=== PATIENT | female | born 1945 | race Caucasian/White ===

== ENCOUNTER → 2017-03-05 | Outpatient (CLI) | payer OTHER ==
--- NOTE | 2017-03-05 15:45 | MAMMOGRAPHY REPORT ---
BILATERAL DIGITAL SCREENING MAMMOGRAM TOMOSYNTHESIS WITH CAD: 03/05/2017 CLINICAL HISTORY: Routine screening. TECHNIQUE: Breast tomosynthesis in addition to standard 2D mammography was performed. Current study was also evaluated with a Computer Aided Detection (CAD) system. COMPARISON: Comparison is made to exams dated: 03/01/2016 mammogram, 02/18/2015 mammogram, 02/17/2014 m ammogram, 01/21/2013 mammogram, 01/21/2012 mammogram, and 12/18/2010 mammogram - [facility]. BREAST COMPOSITION: There are scattered areas of fibroglandular density in both breasts. FINDINGS: There is a stable intramammary lymph node in the right upper outer quadrant. No suspiciou s mass, architectural distortion or cluster of microcalcifications is seen. IMPRESSION: ACR BI-RADS CATEGORY 1: NEGATIVE There is no mammographic evidence of malignancy. A 1 year screening mammogram is recommended. The pa tient will receive written notification of the results. Approximately 10% of breast cancers are not detected with mammography. A negative mammographic report should not delay biopsy if a clinically suggestive mass is present. Libra Hernadez M.D. ay/:03/05/2017 15:25:52 Penology Professor: Jacque LÓPEZ(R)(M), [facility] letter sent: Normal 1/2 BI-RADS Code: ACR BI-RADS Category 1: Negative
== END | disposition home or self-care (01) ==
LOC: C.MAMM 10:22
PROVIDERS: ATTEND Internal Medicine
DX: Z12.31 Encounter for screening mammogram for malignant neoplasm of breast (principal)

== ENCOUNTER 2018-07-09 10:16 | Inpatient (IN) ==
--- NOTE | 2018-06-11 08:56 | Anesthesiology Consultation ---
Date of Service June 11, 2018 Assessment & Plan (1) Encounter for pre-operative examination: Chart Review Chart Review: Acceptable Risk for Surgery and Patient seen in Pre Admission Testing Consults Requested none Teaching & Discussion Pre-Anesthesia Teaching/Discussion Notes: Instructed NPO after midnight before surgery, except medications with 15 cc of water. Medication instructions provided according to the PAT guidelines. History Surgery Operation Date: 07/08/18 08:50 Proposed Procedures p Right Total Knee Replacement - Hernando Dejesus MD Height/Weight Height: 5 ft 2 in Weight: 95.5 kg Allergies Allergy/AdvReac Type Severity Reaction Status Date / Time pneumococcal vaccine AdvReac Intermediate Muscle Verified 06/11/18 08:54 [From Prevnar 13 (PF)] wasting [place] Inhibitors AdvReac Unknown Cough Verified 06/04/18 08:53 Medications Home Medications Medication Instructions Recorded Confirmed Last Taken aspirin [Aspir-81] 81 mg PO DAILY 06/04/18 06/04/18 Unknown losartan 25 mg PO QPM 06/04/18 06/04/18 06/03/18 magnesium citrate 200 - 400 mg PO HS 06/04/18 06/11/18 Unknown melatonin 1 cap PO HS 06/04/18 06/04/18 Unknown milk thistle 175 mg PO QPM 06/04/18 06/04/18 Unknown Past Medical History Medical History Arthritis Asymptomatic gallstones Fatty liver History of anesthesia reaction SLOW TO WAKE UP Hypertension Post-nasal drip "BAD", FEAR OF LYING DOWN DUE TO THIS Shortness of breath WHEN CLIMBING OVER 13 STEPS Past Family History Family History Sister Family history of multiple myeloma Aunt Family history of breast cancer Past Surgical History Surgical History History of arthroscopy of right shoulder History of colonoscopy Past Anesthesia History No Hx of Anesthesia Complications ("slow to wake" from colonoscopy) and No Family Hx of Anesthesia Complications History of PONV No Motion Sickness Screening History of Motion Sickness: Yes Social History Smoking Status: Never smoker Do You Dip or Chew Tobacco: No Hx Alcohol Use: No Hx Substance Use: No substance use type: does not use Exercise / Class Metabolic Activity II 4-5 Yardwork/Stairs/Walk up hill (Walks puppy several times per day. Cares for her house. Able to climb FOS. Denies CP or SOB. Does get SOB when doing multiple FOS. ) Review of Systems Patient denies chest pain, shortness of breath, dyspnea on exertion, reflux, cough, wheezing, palpitations. +[place] with multiple FOS +joint pain (knees, left hip, low back) Physical Exam Vital Signs BP: 140/82 P: 64 R: 16 T: 98.3 SPO2: 98% on RA Constitutional + obese ENMT Mouth: + dental restorations Thyromental Distance: < 3.5 Finger Breadths (3) Mallampati Class: II Neck normal visual inspection and trachea midline; neck extension not limited Respiratory normal respiratory effort Auscultation: lungs clear to auscultation bilaterally Cardiovascular Rate/Rhythm: regular rate and regular rhythm Heart Sounds: no murmur Vessels: no carotid bruit Neurologic moves all extremities Psychiatric Orientation: alert and oriented x 3 Testing Electrocardiogram Date: 06/11/18 Findings: + NSR @ (66) and + no change from (04/29/07) Chest X-Ray Date: 06/11/18 Findings: + NAD Stress Test Date: 05/08/17 Type: DSE Findings: + WNL Resting EF: 55-59% Resting RWMA: + none Valvular Disease: no significant valvular disease Stress ECHO is negative for inducible ischemia. There is no significant valvular disease on the resting study. The proximal ascending thoracic aorta is mildly enlarged. Stress EKG responsed showed no evidence of ischemia. Occasional PVCs were noted with stress. ST segments were normal at rest. Stress test was terminated due to target HR achieved. No symptoms noted. LV wall thickness is mildly increased (concentric). Left ventricular diastolic function is mildly abnormal (grade I). Laboratory Results 06/11/18 09:24 06/11/18: Blood Type O Negative 06/11/18 Antibody Screen NEGATIVE 06/11/18 PT 10.4 Seconds (9.0-12.0) 06/11/18 INR 1.0 (0.9-1.1) 06/11/18 APTT 27.5 Seconds (21.0-31.0) 06/11/18
--- NOTE | 2018-06-11 09:09 | PAT Medication Instructions ---
Medication Instructions Date of Service June 11, 2018 Home Medications aspirin [Aspir-81] 81 mg PO DAILY losartan 25 mg PO QPM magnesium citrate 200 - 400 mg PO HS melatonin 1 cap PO HS milk thistle 175 mg PO QPM ASK your surgeon for instructions aspirin [Aspir-81] 81 mg PO DAILY STOP taking 2 weeks before surgery magnesium citrate 200 - 400 mg PO HS milk thistle 175 mg PO QPM Take morning of surgery NOTHING TO EAT OR DRINK AFTER MIDNIGHT: Take evening before surgery losartan 25 mg PO QPM melatonin 1 cap PO HS Other Notes If you have any questions please call us at [phone] or [phone] or [phone] or [phone]
--- NOTE | 2018-06-11 09:47 | XRay Report ---
XR chest Pre-admission PA/Lat CLINICAL HISTORY: pat preoperative evaluation COMPARISON STUDY: No previous studies for comparison. FINDINGS: The bones soft tissues and hemidiaphragms are normal. The cardiomediastinal silhouette is n ormal. The lungs are clear. The pulmonary vasculature is normal. IMPRESSION: Negative chest. The above report was generated using voice recognition software. It may contain grammatical, syntax or spelling errors. Electronically signed by: Panchito Braxton M.D. 06/11/2018 9:45 AM
[2018-06-11 10:29] LABS: Basophils # (auto) 0.02 K/uL (0-0.2); Basophils % (auto) 0.3 %; Eosinophils # (auto) 0.29 K/uL (0-0.5); Eosinophils % (auto) 3.6 %; Hematocrit (blood only) 45.2 % (37-47); Hemoglobin 15.2 g/dL (12.0-16.0); Immature Granulocytes # (auto) 0.04 K/uL (0.00-0.02); Immature Granulocytes % (auto) 0.5 %; Lymphocytes % (auto) 25.2 %; Mean Corpuscular Hgb Conc 33.6 g/dL (32-36); Mean Corpuscular Volume 89.3 fL (80-100); Mean Platelet Volume 10.1 fL (7.4-10.4); Monocytes # (auto) 0.53 K/uL (0.11-0.59); Monocytes % (auto) 6.7 %; Neutrophils # (auto) 5.07 K/uL (1.4-6.5); Neutrophils % (auto) 63.7 %; Platelet Count 246 K/uL (130-400); RDW Coefficient of Variation 13.4 % (11.5-14.5); RDW Standard Deviation 43.3 fL (36.4-46.3); Red Blood Count 5.06 M/uL (4.2-5.4); White Blood Count 7.95 K/uL (4.8-10.8)
[2018-06-11 10:36] LABS: BUN Creatinine Ratio 17.5 (10-20); Calcium 9.2 mg/dl (8.5-10.1); Creatinine Clr Calc Pharmacy 62.5 ml/min; Est GFR (African American) 75.6; Est GFR (Non-African American) 65.2; Potassium 4.4 mmol/L (3.5-5.1)
[2018-06-11 10:41] LABS: Partial Thromboplastin Ratio 1.1; Partial Thromboplastin Time 27.5 Seconds (21.0-31.0); Prothrombin Time 10.4 Seconds (9.0-12.0)
--- NOTE | 2018-07-03 07:57 | History and Physical Report ---
DATE OF ADMISSION: 07/08/2018 CHIEF COMPLAINT: Bilateral knee pain and degenerative joint disease. HISTORY OF PRESENT ILLNESS: A 72-year-old white female who returned for a followup of treatment of her knees. She has got a long history of bilateral knee pain and discomfort that has become less successful over time. She has been through injection treatment as well as various medicines, which have become less successful. Both knees hurt about the same. The last shot helped for a month. The more she walks, the more it hurts. She has a limited walking tolerance of a couple of blocks. She has difficulty going up and down steps and has nighttime pain. She now would like to proceed with surgical treatment of one of her knees and has selected the right one to do first. PAST MEDICAL HISTORY: 1. Hypertension. 2. Obesity with a BMI of 39. 3. Arthritis. PAST SURGICAL HISTORY: Previous surgeries include rotator cuff surgery. ALLERGIES: None. CURRENT MEDICINES: 1. Losartan. 2. Aspirin 81 mg. 3. Milk thistle. 4. Magnesium. SOCIAL HISTORY: A 72-year-old white female. She has 2 children. Does not smoke or drink alcohol. FAMILY HISTORY: Noncontributory. REVIEW OF SYSTEMS: Negative for diabetes, neurologic problem, vascular problem, bleeding disorders. No chest pain or shortness of breath. No recent DVT or PE. PHYSICAL EXAMINATION: GENERAL: Reveals a healthy, pleasant middle-aged female. Looks to be in pretty good health. HEENT: Benign. NECK: Supple. No lymphadenopathy. LUNGS: Clear to auscultation. HEART: Regular rate and rhythm. ABDOMEN: Soft, nontender, nondistended. EXTREMITIES: Grossly neurovascularly intact except as follows: Examination of both knees revealed patient walks independently. She has got fairly neutral alignment to her knees. She does have moderate to large soft tissue envelope bilaterally. She is tender over the medial joint lines bilaterally. Range of motion is symmetric with about 5 degrees short of full extension and 120 degrees of flexion bilaterally. No pain with hip motion. She is neurologically intact. X-RAYS: X-rays of both knees reveal advanced bilateral knee DJD, the right side is a bit worse than the left. She has complete loss of medial joint space in both knees. She has subchondral sclerosis and osteophytes in all 3 compartments. The patellofemoral arthritis is worse than the left side. ASSESSMENT: A 72-year-old white female with advanced bilateral knee degenerative joint disease. She now would like to proceed with surgical treatment. She has failed conservative care. PLAN: We talked about treatment. She would like to proceed with right knee replacement. The risks and benefits of the right total knee replacement were explained to the patient include but not limited to DVT, PE, , infection, neurological injury, vascular injury, bleeding problem, pain, limited range of motion, stiffness, failure to relieve symptoms, incomplete relief of symptoms, need for further surgery in future, fracture, leg length inequality, nerve palsy, etc. The patient understands and desires to proceed. Informed consent was obtained. She does have some problems with a fatty liver, so we cannot give her Tylenol postoperatively. Will likely have to use NSAIDs and then strictly narcotics.
[~2018-07-09 10:16] MED LIST: ACETAMINOPHEN 500 MG TAB PO SCH; BUPIVACAINE 0.5 % 5 MG/1 ML PF 10ML VIAL ONE; BUPIVACAINE LIPOSOME/PF 266 MG, BUPIVACAINE/EPINEPHRINE 50 ML, SODIUM CHLORIDE 0.9% 30 ... INFIL SCH; CEFAZOLIN 2000MG 2,000 MG/15 ML SYR IV SCH; EPINEPHrine INJ 1 MG/ML AMP ONE; FAMOTIDINE 20 MG TAB PO SCH; GABAPENTIN 300 MG PO SCH; LR 60ML/HR IV SCH; METOCLOPRAMIDE HCL 10 MG TABLET PO SCH; ROPIVACAINE 0.5% 5 MG/ML 30 ML VIAL ONE; TRANEXAMIC ACID 1,000 MG **IV Intra-op IV SCH
[2018-07-09] MEDS: LR 500ML BOLUS, THEN 15ML/HR IV SCH ×8 (10:59→23:10)
[2018-07-09] MEDS ORDERED: FAMOTIDINE 20 MG TAB ONE (11:01)
[2018-07-09] MEDS ORDERED: GABAPENTIN 300 MG CAP ONE (11:01)
[2018-07-09] MEDS ORDERED: METOCLOPRAMIDE HCL 10 MG TABLET ONE (11:01)
[2018-07-09] MEDS ORDERED: ACETAMINOPHEN 500 MG TAB ONE (11:01)
[2018-07-09] MEDS ORDERED: CEFAZOLIN 2,000 MG/15 ML IV PUSH IV ONE (11:02)
--- NOTE | 2018-07-09 11:26 | History & Physical Bridge Note ---
Date of Service July 09, 2018 History & Physical Bridge Note I have examined the patient, reviewed the History & Physical and in the interval since the performance of the History & Physical I have noted the following changes of clinical significance: no changes noted
[2018-07-09] MEDS ORDERED: TRANEXAMIC ACID 1,000 MG **IV Intra-op IV ONE (11:30)
[2018-07-09] MEDS ORDERED: MIDAZOLAM HCL 1 MG/ML 2ML VIAL ONE ×2 (12:35→14:46)
[2018-07-09] MEDS ORDERED: ePHEDrine sulfate 50 MG/ML AMP IV PRN (12:36)
[2018-07-09] MEDS ORDERED: LABETALOL HCL IV 5 MG/ML 20ML IV PRN (12:36)
[2018-07-09] MEDS ORDERED: MEPERIDINE HCL 25 MG/ML CARP IV PRN (12:36)
[2018-07-09] MEDS ORDERED: ATROPINE SULFATE 0.1 MG/ML 10ML SYR IV PRN (12:36)
[2018-07-09] MEDS ORDERED: HYDROmorphone INJ 1 MG/ML SYRINGE IV PRN (12:36)
[2018-07-09] MEDS ORDERED: ONDANSETRON INJ 2 MG/ML 2 ML VIAL IV PRN ×2 (12:36→16:27)
[2018-07-09] MEDS ORDERED: fentaNYL citrate 100 MCG/2 ML VIAL IV PRN (12:36)
[2018-07-09] MEDS ORDERED: PHENYLEPHRINE 100MCG/ML 5ML SYR IV PRN (12:36)
[2018-07-09] MEDS ORDERED: PROPOFOL IV EMULSION 10 MG/ML 20 ML VIAL IV ONE (13:14)
[2018-07-09] MEDS ORDERED: LIDOCAINE HCL 2% 2 ML VIAL/AMP(20MG/ML) INFIL ONE (13:14)
[2018-07-09] MEDS ORDERED: ONDANSETRON INJ 2 MG/ML 2 ML VIAL ONE (13:14)
[2018-07-09] MEDS ORDERED: DEXAMETHASONE SOD INJ 4 MG/ML VIAL ONE (13:14)
[2018-07-09] MEDS ORDERED: SODIUM CHLORIDE 0.9% PF 50 ML VIAL ONE (13:22)
[2018-07-09] MEDS ORDERED: BACITRACIN INJ 50,000 UNIT VIAL ONE (13:22)
[2018-07-09] MEDS ORDERED: BUPIVACAINE 0.25% 30 ML VIAL ONE (13:23)
[2018-07-09] MEDS ORDERED: BUPIVACAINE LIPOSOME 1.3% 266 MG/20 ML VIAL ONE (13:23)
[2018-07-09] MEDS ORDERED: EPINEPHrine INJ 1 MG/ML AMP ONE (13:24)
[2018-07-09] MEDS ORDERED: fentaNYL citrate 100 MCG/2 ML VIAL ONE (13:56)
--- NOTE | 2018-07-09 15:27 | Post Operative Brief Note ---
Immediate Post Op Note v1 Date of Surgery July 09, 2018 Pre & Post Diagnosis Operation Date: 07/09/18 13:15 Pre-Op Diagnosis: Right Knee Degenerative Joint Disease; Knee Pain Post-Op Diagnosis: Right Knee Degenerative Joint Disease; Knee Pain Procedure Operation Date: 07/09/18 13:15 Actual Procedures p Right Total Knee Replacement(Right) - Hernando Dejesus MD Surgeon Hernando Dejesus MD Screen Machine Operator [place], PAC Estimated Blood Loss 50 Findings Consistent with Post-Op Diagnosis Fluids 450 cc Specimens Right Knee Drains Kirby Catheter Anesthesia Type Spinal MAC Complications none Disposition Accompanied Patient To Recovery: No Disposition: Recovery Room
[2018-07-09] MEDS ORDERED: ePHEDrine sulfate 50 MG/ML SYR ONE (15:37)
--- NOTE | 2018-07-09 15:50 | XRay Report ---
XR knee RT 2V routine CLINICAL HISTORY: Surgical Post Op COMPARISON: None. DISCUSSION: Total right knee arthroplasty with a metallic prosthetic in good position. Good contact b etween prosthesis and underlying bone. Expected soft tissue postoperative change. There is no evidenc e for soft tissue swelling. IMPRESSION: Anatomic alignment post total right knee arthroplasty. The above report was generated using voice recognition software. It may contain grammatical, syntax or spelling errors. Electronically signed by: Panchito Braxton M.D. 07/09/2018 3:49 PM
[2018-07-09] MEDS ORDERED: NALOXONE HCL 0.4 MG/1 ML VIAL/CARP IV PRN (16:27)
[2018-07-09] MEDS ORDERED: BISACODYL 10 MG SUPP PR PRN (16:27)
[2018-07-09] MEDS ORDERED: HYDROmorphone INJ 0.5 MG/0.5 ML SYR IV PRN (16:27)
[2018-07-09] MEDS ORDERED: ALUMINUM/MAGNESIUM SUSP 30 ML UDC PO PRN (16:27)
[2018-07-09] MEDS ORDERED: METOCLOPRAMIDE HCL INJ 5 MG/ML 2 ML VIAL IV PRN (16:27)
[2018-07-09] MEDS ORDERED: MAGNESIUM HYDROXIDE SUSP 30 ML UDC PO PRN (16:27)
--- NOTE | 2018-07-09 17:05 | Anesthesiology Progress Note ---
Date of Service July 09, 2018 Anesthesia Post Procedure Vital Signs Vital Signs: Temp Pulse Pulse Resp BP Pulse Ox 07/09/18 16:48 36.4 C L 69 16 155/84 H 98 07/09/18 16:28 36.4 C L 73 16 150/81 H 98 07/09/18 16:00 36.5 C 66 18 138/74 95 07/09/18 15:50 61 18 134/76 95 07/09/18 15:40 67 18 132/75 95 07/09/18 15:32 36.7 C 71 18 138/71 95 07/09/18 10:55 37 C 78 20 170/91 H 98 Notes Mental Status: alert / awake / arousable Patient Amnestic to Procedure: Yes Nausea / Vomiting: adequately controlled Pain: adequately controlled Airway Patency, RR, SpO2: stable & adequate BP & HR: stable & adequate Hydration State: stable & adequate Neuraxial Anesthesia: was administered and sensory block is resolving Anesthetic Complications: no major complications apparent
[2018-07-09] MEDS: SODIUM CHLORIDE 0.9% 1000ML 1,000 ML IV SCH (18:18)
[2018-07-09] MEDS: ASCORBIC ACID 500 MG TAB PO SCH (18:18)
[2018-07-09] MEDS: FERROUS GLUCONATE 324 MG TAB PO SCH (18:18)
[2018-07-09] MEDS: KETOROLAC TROMETHAMINE 15 MG/ML VIAL IV SCH ×2 (18:19→23:53)
[2018-07-09] MEDS: CEFAZOLIN 2000MG 2,000 MG/15 ML SYR IV SCH (18:38)
[2018-07-09] MEDS: DOCUSATE SODIUM 100 MG CAP PO SCH (20:09)
[2018-07-09] MEDS: LOSARTAN POTASSIUM 25 MG TAB PO SCH (20:09)
[2018-07-09] MEDS: SENNA 8.6 MG TAB PO SCH (20:10)
[2018-07-09] MEDS: ASPIRIN 81 MG ECTAB PO SCH (20:10)
[2018-07-09] MEDS ORDERED: MELATONIN PO SCH (21:00)
[2018-07-09] MEDS ORDERED: MAGNESIUM CITRATE PO SCH (21:00)
[2018-07-09] MEDS ORDERED: MILK THISTLE 175 MG PO SCH (21:00)
[2018-07-09] MEDS ORDERED: TRANEXAMIC ACID 1,000 MG in 0.9 % SODIUM CHLORIDE 100 ML IV SCH (21:30)
[2018-07-10] MEDS: TRAMADOL HCL 50 MG TABLET PO PRN ×2 (02:20→20:21)
[2018-07-10] MEDS: CEFAZOLIN 2000MG 2,000 MG/15 ML SYR IV SCH (02:20)
--- NOTE | 2018-07-10 03:56 | Operative Report ---
DATE OF OPERATION: 07/09/2018 SURGEON: Hernando Dejesus MD COMPLIANCE ANALYST: MAYRA Hillman PREOPERATIVE DIAGNOSIS: Right knee degenerative joint disease. POSTOPERATIVE DIAGNOSIS: Same. PROCEDURE PERFORMED: Right cemented posterior stabilized total knee arthroplasty. COMPLICATIONS: None. ESTIMATED BLOOD LOSS: 50 mL. FLUID REPLACEMENT: 450 mL of crystalloid fluid replacement. ANESTHESIA: Spinal with adductor canal block. DRAINS: None. SPECIMENS: Right knee sent for pathology. OPERATIVE INDICATIONS: The patient is a 72-year-old female who had had a several-year history of increasing bilateral knee pain and discomfort and which became less responsive to conservative care. It is really limiting her activities. She had constant pain that got worse and worse as she walked and as the day went on. X-rays show advanced medial compartment arthritis. The patient elected to proceed with surgical treatment. OPERATIVE FINDINGS: Operative findings were advanced right knee DJD. She had extensive grade 4 changes in the medial as well as the patellofemoral compartment. She had osteophytes in all 3 compartments. She had a fixed varus deformity to her knee with a moderate-sized knee effusion. OPERATIVE IMPLANTS: Operative implants consisted of: 1. Biomet Vanguard size 65 right posterior stabilized femoral component. 2. Biomet size 67 tibial tray. 3. A 12 mm posterior stabilized polyethylene insert. 4. A 31 x 8 all poly patella. OPERATIVE PROCEDURE: The patient was taken to the operating room, identified, and placed on the operating table in supine position. All contact areas were appropriately padded. IV antibiotics were provided by the anesthesia team. A spinal anesthetic and adductor canal block had been provided in the holding area. Kirby catheter was placed in sterile fashion. A right thigh tourniquet was then placed and the right lower extremity was then prepped and draped in the usual sterile fashion. The right leg was elevated and exsanguinated with Esmarch and tourniquet was placed at 300 mmHg. An anterior approach to the right knee was then performed through a longitudinal incision centered over the patella. Sharp dissection was carried through the subcutaneous tissues down to the level of the extensor mechanism. A medial parapatellar arthrotomy incision was made. Some subperiosteal dissection was carried out medially. The fat pad was resected from beneath the patellar tendon. The lateral patellofemoral ligament was released. The patella was everted and the knee was flexed. The osteophytes were taken off the distal femur. The ACL and PCL were then released from the distal femur and the tibia subluxated anteriorly. The external tibial alignment jig was then placed in the anterior face of the tibia and adjusted 14 mm medially. Proximal tibial cut was made to remove about 2 mm of bone from the most deficient aspect of the medial tibial plateau. Some osteophytes were taken off medially and posteromedially. Tibia sized to a size 67. Attention was then drawn to the femur. The distal femur was entered with a sharp drill. Intramedullary canal was suctioned. A right 5-degree valgus cutting guide was placed. Distal femoral cutting block was pinned in place. The distal femoral cut was adjusted take an additional 3 mm of bone off the distal femur. The femur was then sized to a size 65. We downsized this slightly. The AP cutting block was pinned parallel to the epicondylar axis which was 3 degrees of external rotation. The anterior cut, anterior chamfer cut, posterior cut, posterior chamfer cuts were made. Box cutting guide was placed and adjusted slightly lateral and a box cut was made. The knee was flexed. The remnants of the medial and lateral menisci were excised. The osteophytes were taken off the posterior aspect of the femur. Trial femoral component was placed. Tibial tray was pinned in maximum external rotation and the drill and stem punch were used to create a defect in proximal tibia for the tibial tray. The knee was then trialed and the 12 mm insert fit most appropriately. Attention was then drawn to the patella. The patella was cleaned of all soft tissues. Patellar thickness measured 21 mm in thickness, it was cut down to 13. It was sized to a size 31 patella. Lug holes were drilled for 31 patella. The lateral osteophyte was removed. Patellar button was placed. Knee was taken through range of motion and patella tracked nicely with no thumbs test. Attention was then drawn toward placement of the permanent components. All trial components were removed. Bone plug was placed in the distal femur to limit blood loss. A double batch of Palacos G cement was mixed. A Biomet Vanguard size 65 right posterior stabilized femoral component, size 67 tibial tray, a 12-mm posterior stabilized polyethylene insert, and a 31 x 8 all poly patella was then cemented in place. Knee was brought out into full extension until the cement hardened. A final cement check was then performed. The pericapsular tissues were injected with a total of 100 mL of combination of 20 mL of Exparel, 30 mL of normal saline, 50 mL of 0.25% Marcaine with epinephrine. The patient did receive 1 gram of tranexamic acid. The tourniquet was then let down for a final tourniquet time of 58 minutes. Hemostasis was assured with the use of electrocautery. The wound was once again irrigated. The extensor mechanism was then closed with a combination of #1 PDS suture and #1 Vicryl suture in a [id number] fashion. The extensor mechanism was checked and found to be intact. Subcutaneous tissue was then closed with #2 Dexon suture in a buried interrupted fashion. The skin was then closed with skin domo. Leg was then cleaned and dried and a sterile dressing of Xeroform, 4 x 4, sterile cast padding, and Avelino bandage were applied. The patient was then transferred to the recovery room in stable condition. The patient tolerated the procedure well with no complications. All the instrument and sponge counts were correct at the end of the operation. I attest to the content of the Intraoperative Record and any orders documented therein. Any exception s are noted below.
[2018-07-10] MEDS: KETOROLAC TROMETHAMINE 15 MG/ML VIAL IV SCH ×4 (05:42→23:36)
[2018-07-10 06:25] LABS: Hematocrit (blood only) 38.1 % (37-47); Hemoglobin 12.9 g/dL (12.0-16.0); Mean Corpuscular Hgb Conc 33.9 g/dL (32-36); Mean Corpuscular Volume 88.4 fL (80-100); Mean Platelet Volume 9.8 fL (7.4-10.4); Platelet Count 264 K/uL (130-400); RDW Coefficient of Variation 13.2 % (11.5-14.5); RDW Standard Deviation 42.7 fL (36.4-46.3); Red Blood Count 4.31 M/uL (4.2-5.4); White Blood Count 15.29 K/uL (4.8-10.8)
[2018-07-10 06:55] LABS: BUN Creatinine Ratio 18.3 (10-20); Calcium 8.4 mg/dl (8.5-10.1); Creatinine Clr Calc Pharmacy 59.3 ml/min; Est GFR (African American) 70.7; Potassium 4.2 mmol/L (3.5-5.1)
--- NOTE | 2018-07-10 07:25 | Progress Note ---
DATE: 07/10/2018 SUBJECTIVE: A 72-year-old white female postop day 1 from right knee replacement. She is doing pretty well. Had some pain in the middle of the night, took some pain pills and doing better. No chest pain or shortness of breath. Not feeling dizzy or lightheaded. OBJECTIVE: VITAL SIGNS: Temperature 37.0. Vital signs stable. GENERAL: Physical examination reveals a pleasant, middle-aged female. She is sitting up in bed, looks pretty comfortable. LUNGS: Clear to auscultation. HEART: Regular rate and rhythm. ABDOMEN: Soft, nontender, nondistended. EXTREMITIES: Grossly neurovascularly intact except as follows: Examination of the right lower extremity reveals the leg to be well aligned. Dressing is clean, dry and intact. She can dorsiflex and plantarflex her foot appropriately. She is neurologically intact. LABORATORY DATA: Hemoglobin 12.9. Hematocrit 38.1. White cell count 15.29. Electrolytes are stable. ASSESSMENT: A 72-year-old white female postop day 1 from right knee replacement, doing pretty well. Pain is controlled. She is neurologically intact. PLAN: 1. DVT prophylaxis including thigh-high TEDs, SCDs, and aspirin twice a day. 2. PT/OT. Weight bear as tolerated. Right total knee protocol. 3. Pain control, doing well with current pain regimen. 4. Disposition: She is planning to be discharged to home with some home health once adequately recovered. 5. Elevated white count. Most likely related to stress. There are no focal signs of infection anywhere.
[2018-07-10] MEDS: MULTIVITAMIN TAB PO SCH (08:45)
[2018-07-10] MEDS: ASPIRIN 81 MG ECTAB PO SCH ×2 (08:45→20:26)
[2018-07-10] MEDS: ASCORBIC ACID 500 MG TAB PO SCH ×2 (08:46→17:04)
[2018-07-10] MEDS: DOCUSATE SODIUM 100 MG CAP PO SCH ×2 (08:46→20:23)
[2018-07-10] MEDS: FERROUS GLUCONATE 324 MG TAB PO SCH ×2 (08:46→17:03)
--- NOTE | 2018-07-10 09:29 | Anesthesiology Progress Note ---
Date of Service July 10, 2018 Anesthesia Post Procedure Vital Signs Vital Signs: Temp Pulse Pulse Resp BP Pulse Ox 07/10/18 07:04 37.0 C 68 18 151/82 H 93 07/10/18 06:56 65 108/64 07/10/18 03:33 37.2 C 66 14 145/73 H 96 07/09/18 23:41 37.0 C 64 15 145/80 H 95 07/09/18 20:14 77 151/80 H 94 07/09/18 19:24 36.4 C L 75 16 162/84 H 96 07/09/18 17:16 36.4 C L 71 18 158/84 H 98 07/09/18 16:48 36.4 C L 69 16 155/84 H 98 07/09/18 16:28 36.4 C L 73 16 150/81 H 98 07/09/18 16:00 36.5 C 66 18 138/74 95 07/09/18 15:50 61 18 134/76 95 07/09/18 15:40 67 18 132/75 95 07/09/18 15:32 36.7 C 71 18 138/71 95 07/09/18 10:55 37 C 78 20 170/91 H 98 Pain Intensity Right Knee: Pain Intensity: 1 Notes Mental Status: alert / awake / arousable Nausea / Vomiting: adequately controlled Pain: adequately controlled Airway Patency, RR, SpO2: stable & adequate BP & HR: stable & adequate Hydration State: stable & adequate Neuraxial Anesthesia: was administered and sensory block resolved Anesthetic Complications: no major complications apparent and Pt Satisfied with anesthetic care
[2018-07-10] MEDS: SODIUM CHLORIDE 0.9% 1000ML 1,000 ML IV SCH (16:35)
[2018-07-10] MEDS ORDERED: OXYCODONE HCL SOLN 5 MG/5 ML UDC PO PRN (18:15)
[2018-07-10] MEDS ORDERED: ACETAMINOPHEN 325 MG TAB PO PRN (18:18)
[2018-07-10] MEDS ORDERED: Nursing to Pharmacy Communication ONE (19:42)
[2018-07-10] MEDS: LOSARTAN POTASSIUM 25 MG TAB PO SCH (20:23)
[2018-07-10] MEDS: SENNA 8.6 MG TAB PO SCH (20:27)
[2018-07-11] MEDS: TRAMADOL HCL 50 MG TABLET PO PRN (02:52)
[2018-07-11] MEDS: KETOROLAC TROMETHAMINE 15 MG/ML VIAL IV SCH ×2 (04:55→13:00)
[2018-07-11] MEDS: FERROUS GLUCONATE 324 MG TAB PO SCH ×2 (08:59→18:00)
[2018-07-11] MEDS: ASPIRIN 81 MG ECTAB PO SCH ×2 (09:01→21:58)
[2018-07-11] MEDS: ASCORBIC ACID 500 MG TAB PO SCH ×2 (09:01→18:00)
[2018-07-11] MEDS: MULTIVITAMIN TAB PO SCH (09:01)
[2018-07-11] MEDS: DOCUSATE SODIUM 100 MG CAP PO SCH ×2 (09:02→21:58)
--- NOTE | 2018-07-11 11:20 | Progress Note ---
DATE: 07/11/2018 SUBJECTIVE: A 72-year-old white female postop day 2 from a right knee replacement. She is doing okay. Having quite a bit of pain still. She is having trouble getting in and out of bed. She gets lightheaded. Denies any chest pain or shortness of breath. Not feeling dizzy. She does get lightheaded when she gets up and not lying in bed. OBJECTIVE: VITAL SIGNS: Temperature 37.4. Vital signs are stable with a blood pressure of 155/93 currently. GENERAL: Physical examination reveals a pleasant elderly female. She is sitting up in bed, looks completely comfortable. EXTREMITIES: Examination of the right leg reveals the leg to be well aligned. Dressing is clean, dry and intact. Calf is soft and supple. She can dorsiflex and plantarflex her foot appropriately. She is neurologically intact. ASSESSMENT: A 72-year-old white female postop day 2 from right knee replacement, doing okay. She had a bit more pain than she expected, but not out of the ordinary. She is having a little trouble getting up and ambulating due to some dizziness. Her blood pressure is stable and her hemoglobin is stable. PLAN: 1. DVT prophylaxis including thigh-high TEDs, SCDs, and aspirin twice a day. 2. PT/OT. Weight bear as tolerated. Right total knee protocol. 3. Pain control, doing okay with current pain regimen. We are going to try and limit stronger narcotics to avoid confusion. 4. Dizziness. Her blood pressure is actually a little bit high. Her hemoglobin is stable. We will continue to try and mobilize her. 5. Disposition: She is hoping to be discharged to home with some home health if she is able to get up and around a bit more safely without the dizziness. We will see how things go throughout the day.
[2018-07-11] MEDS: SENNA 8.6 MG TAB PO SCH (21:57)
[2018-07-11] MEDS: LOSARTAN POTASSIUM 25 MG TAB PO SCH (21:58)
[2018-07-12] MEDS: FERROUS GLUCONATE 324 MG TAB PO SCH (09:31)
[2018-07-12] MEDS: ASCORBIC ACID 500 MG TAB PO SCH (09:31)
[2018-07-12] MEDS: ASPIRIN 81 MG ECTAB PO SCH (09:31)
[2018-07-12] MEDS: DOCUSATE SODIUM 100 MG CAP PO SCH (09:31)
[2018-07-12] MEDS: MULTIVITAMIN TAB PO SCH (09:31)
--- NOTE | 2018-07-12 10:01 | Progress Note ---
DATE: 07/12/2018 SUBJECTIVE: A 72-year-old white female postop day 3 from right knee replacement. She had been having some problems with dizziness and lightheaded when getting up, but doing better over the past 24 hours. No chest pain or shortness of breath. Pain is controlled. OBJECTIVE: VITAL SIGNS: Temperature 37.4. Vital signs stable. Some mild hypertension. GENERAL: Physical examination reveals a pleasant elderly female. She is sitting up in bed, looks comfortable. EXTREMITIES: Examination of the right leg reveals it to be well aligned. Some slight bruising around the incision site. No drainage. Calf is soft and supple. She is neurologically intact. ASSESSMENT: A 72-year-old white female postop day 3 from right knee replacement, doing pretty well. Dizziness seems to be resolved. She still feels more comfortable going home. PLAN: 1. DVT prophylaxis including thigh-high TEDs, SCDs, and aspirin twice a day. 2. PT and OT. Weight bear as tolerated. Right total knee protocol. 3. Pain control, doing pretty well with current pain regimen. 4. Disposition: Plan to discharge to home with some home health after therapy today.
[2018-07-12] MEDS: TRAMADOL HCL 50 MG TABLET PO PRN (11:03)
--- NOTE | 2018-07-18 15:52 | Discharge Summary ---
ADMITTING PHYSICIAN AND SURGEON: Dr. Dejesus. ADMITTING DIAGNOSIS: Right knee degenerative joint disease. SURGERY PERFORMED: Right total knee arthroplasty. SECONDARY DIAGNOSES: Hypertension, obesity, arthritis. CONSULTS: None obtained. HISTORY AND PHYSICAL EXAMINATION: Well documented in patient's chart. HOSPITAL COURSE: The patient was admitted on 07/09/18 and underwent total knee arthroplasty, tolerated the procedure well. There were no complications. She was transferred to the PACU postoperatively and later to the orthopedic floor for further care. She was given Ancef for antibiotic prophylaxis, CHUCKIE stockings, SCDs and aspirin for DVT prophylaxis. Hemoglobin, hematocrit and vital signs were monitored during hospital stay and remained stable. She did have some dizziness and lightheadedness postoperatively which did resolve. There were no complications. By postoperative day 3 she was tolerating a regular diet, pain was controlled with oral pain medicine. She was participating in physical therapy. Postop day 3, she was discharged home, set up with home health services. She was given printed discharge instructions including new prescriptions for aspirin and tramadol. Continue her home medications, continue physical therapy, weightbearing as tolerated, CHUCKIE stockings. Follow up approximately 2 weeks postoperatively or sooner if there are any problems or concerns.
== END 2018-07-12 12:00 | disposition home health service (06) | DRG 470 ==
LOC: ASU 10:16 → 3E 15:31

== ENCOUNTER 2020-03-01 08:23 | Observation (INO) ==
--- NOTE | 2020-01-27 15:18 | PAT Medication Instructions ---
Medication Instructions Date of Service January 27, 2020 Home Medications losartan 25 mg PO QPM milk thistle 175 mg PO HS aspirin 81 mg tablet,delayed release 81 mg PO BID magnesium citrate 100 mg tablet 100 mg PO HS azelastine 1 spray INTRANASAL HS melatonin 3 mg PO HS PRN ASK your prescriber and surgeon aspirin 81 mg tablet,delayed release 81 mg PO BID STOP taking 2 weeks before surgery (or as soon as possible if surgery is within 2 weeks) milk thistle 175 mg PO HS Take evening before surgery losartan 25 mg PO QPM magnesium citrate 100 mg tablet 100 mg PO HS azelastine 1 spray INTRANASAL HS melatonin 3 mg PO HS PRN (if needed) Other Notes If you have any questions please call us at [phone] or [phone] or [phone] or [phone]
--- NOTE | 2020-01-28 14:34 | Anesthesiology Consultation ---
Date of Service January 28, 2020 Assessment & Plan (1) Encounter for pre-operative examination: Chart Review Chart Review: Acceptable Risk for Surgery (pending preop Covid testing ) and Patient seen in Pre Admission Testing Per PAT appt on 01/28/20, pt resides in [facility]. Travels only to [facility] for medical appts. No known Covid positive contacts or Covid related symptoms. Educated patient to follow up with surgeon's office regarding Covid testing. Educated on importance of self quarantining, social distancing and wearing mask in public both for the patient and household contacts. Right TKA 07/09/18= Done under SAB- at L3-4. 1 attempt. No anesthesia issues noted per record Teaching & Discussion Pre-Anesthesia Teaching/Discussion Notes: Instructed NPO after midnight before surgery,except medications with 15 cc of water. Medication instructions p rovided according to the PAT guidelines. History Surgery Operation Date: 03/01/20 12:30 Proposed Procedures p Left Total Knee Arthroplasty - Hernando Dejesus MD Height/Weight Height: 5 ft 2 in Weight: 101.1 kg Allergies Allergy/AdvReac Type Severity Reaction Status Date / Time LAWRENCE Inhibitors Allergy Mild Cough Verified 01/28/20 13:01 pneumococcal vaccine AdvReac Intermediate Muscle Verified 01/28/20 13:01 [From Prevnar 13 (PF)] wasting Medications Home Medications Medication Instructions Recorded Confirmed Last Taken losartan 25 mg PO QPM 06/04/18 01/28/20 07/08/18 20:00 milk thistle 175 mg PO HS 06/04/18 01/28/20 07/01/18 20:00 aspirin 81 mg tablet,delayed 81 mg PO BID tab 06/19/19 01/28/20 Unknown release magnesium citrate 100 mg tablet 100 mg PO HS tab 06/19/19 01/28/20 Unknown azelastine 1 spray INTRANASAL HS 01/27/20 01/28/20 Unknown melatonin 3 mg PO HS PRN 01/27/20 01/28/20 Unknown Past Medical History Medical History Asymptomatic gallstones Carpal tunnel syndrome LEFT SIDE Fatty liver No elevated LFTs recently per patient - controlled magnesium and milk thistle Hypertension Post-nasal drip Exercise / Class Metabolic Activity II 4-5 Yardwork/Stairs/Walk up hill (one flight of stairs- no chest pain or SOB) Past Family History Family History Sister Family history of multiple myeloma Aunt Family history of breast cancer Mother Family history of diabetes mellitus Past Surgical History Surgical History H/O total knee replacement RT History of anesthesia reaction SLOW TO WAKE UP History of arthroscopy of right shoulder History of colonoscopy Past Anesthesia History No Hx of Anesthesia Complications (with exception to groggy post op after c-sc ope) and No Family Hx of Anesthesia Complications History of PONV No Hx of PONV and No Hx of Motion Sickness Social History Smoking Status: Never smoker Do You Dip or Chew Tobacco: No Hx Alcohol Use: No Hx Substance Use: No substance use type: does not use Review of Systems Occ cough secondary to post nasal drip Patient denies chest pain, shortness of breath, dyspnea on exertion, reflux, wheezing, palpitations. No hx of seizures, stroke, VT, apnea/snoring. No hx of blood clots or blood transfusions Physical Exam Vital Signs VITALS BP 144/83 P 91 TEMP 98.8 SP02 95% RESP 16 Constitutional no acute distress ENMT Mouth: no TMJ clicking Thyromental Distance: > or= 3.5 Finger Breadths (3.5) Mallampati Class: III Upper permanent bridge on right side Permament implant bottom right side Crowns on top front teeth Neck neck extension not limited Respiratory normal respiratory effort; no respiratory distress Auscultation: lungs clear to auscultation bilaterally; no wheezes Cardiovascular Rate/Rhythm: regular rate and regular rhythm Heart Sounds: no murmur Vessels: no carotid bruit Musculoskeletal Spine: no pain with cervical ROM Neurologic moves all extremities Psychiatric Orientation: alert Testing Laboratory Results 01/28/20 14:44 01/28/20 14:44 PT 10.7 Seconds (9.0-12.0) 01/28/20 14:44 INR 1.0 (0.9-1.1) 01/28/20 14:44 APTT 28.6 Seconds (21.0-31.0) 01/28/20 14:44 Blood Type O Negative 01/28/20 14:44 Antibody Screen NEGATIVE 01/28/20 14:44 Electrocardiogram Findings: + NSR @ (86) Chest X-Ray Date: 01/28/20 Findings: + NAD Unchanged mild right hemidiaphragmatic elevation. Stress Test Date: 05/08/17 Type: DSE Findings: + WNL Resting EF: 55-59% Resting RWMA: + none Valvular Disease: no significant valvular disease Stress ECHO is negative for inducible ischemia. There is no significant valvular disease on the resting study. The proximal ascending thoracic aorta is mildly enlarged. Stress EKG response showed no evidence of ischemia. Occasional PVCs were noted with stress. ST segments were normal at rest. Stress test was terminated due to target HR achieved. No symptoms noted. LV wall thickness is mildly increased (concentric). Left ventricular diastolic function is mildly abnormal (grade I).
--- NOTE | 2020-01-28 15:26 | XRay Report ---
XR chest Pre-admission PA/Lat HISTORY: 74 years-old Female pat preoperative exam. No acute chest complaints COMPARISON: Chest radiographs 06/11/2018 TECHNIQUE: PA and lateral views of the chest FINDINGS: Cardiomediastinal and hilar silhouettes are within normal limits. Calcified plaque of the thoracic ao rtic arch. Unchanged mild right hemidiaphragmatic elevation. No pneumothorax, pleural effusion or ove rt pulmonary edema. Bones of the chest appear grossly intact. Unchanged widening of the right AC join t. IMPRESSION: No acute process. ACT 112: Negative or not required by law. The above report was generated using voice recognition software. It may contain grammatical, syntax o r spelling errors. Electronically signed by: Clemente Pabon M.D. 01/28/2020 3:25 PM
[2020-01-28 15:31] LABS: Basophils # (auto) 0.03 K/uL (0-0.2); Basophils % (auto) 0.3 %; Eosinophils % (auto) 3.1 %; Hematocrit (blood only) 45.8 % (37-47); Hemoglobin 15.2 g/dL (12.0-16.0); Immature Granulocytes # (auto) 0.05 K/uL (0.00-0.02); Immature Granulocytes % (auto) 0.5 %; Lymphocytes # (auto) 2.19 K/uL (1.2-3.4); Lymphocytes % (auto) 22.8 %; Mean Corpuscular Hemoglobin 29.4 pg (25-34); Mean Corpuscular Hgb Conc 33.2 g/dL (32-36); Mean Corpuscular Volume 88.6 fL (80-100); Mean Platelet Volume 9.9 fL (7.4-10.4); Monocytes # (auto) 0.44 K/uL (0.11-0.59); Monocytes % (auto) 4.6 %; Neutrophils % (auto) 68.7 %; Platelet Count 285 K/uL (130-400); RDW Coefficient of Variation 13.4 % (11.5-14.5); RDW Standard Deviation 43.6 fL (36.4-46.3); Red Blood Count 5.17 M/uL (4.2-5.4); White Blood Count 9.61 K/uL (4.8-10.8)
[2020-01-28 15:37] LABS: BUN Creatinine Ratio 16.3 (10-20); C Reactive Protein 0.37 mg/dl (0-0.29); Calcium 9.5 mg/dl (8.5-10.1); Creatinine Clr Calc Pharmacy 51.2 ml/min; Est GFR (African American) 58.3; Est GFR (Non-African American) 50.3; Potassium 3.7 mmol/L (3.5-5.1)
[2020-01-28 15:48] LABS: Partial Thromboplastin Time 28.6 Seconds (21.0-31.0); Prothrombin Time 10.7 Seconds (9.0-12.0)
--- NOTE | 2020-01-29 06:55 | Electrocardiogram Report ---
Test Reason : Blood Pressure : / mmHG Vent. Rate : 086 BPM Atrial Rate : 086 BPM P-R Int : 152 ms QRS Dur : 092 ms QT Int : 382 ms P-R-T Axes : 053 -20 050 degrees QTc Int : 457 ms Normal sinus rhythm Normal ECG When compared with ECG of 11-JUN-2018 09:20, No significant change was found Confirmed by Alphonso Bruno ([id number]) on 01/29/2020 6:55:21 AM Referred By: Hernando Dejesus Confirmed By:Alphonso Bruno
--- NOTE | 2020-02-27 18:56 | History and Physical Report ---
DATE OF ADMISSION: 03/01/2020 CHIEF COMPLAINT: Persistent left knee pain and discomfort. HISTORY OF PRESENT ILLNESS: The patient is a 74-year-old female who is now a little over a year and half out from right knee replacement, presents for surgical treatment of her left knee. She has a long history of left knee pain and discomfort. She has been through extensive conservative treatment in the past. The shots helped her for about a month and that is about it. She is having more and more pain. She has pain with every step and the more she walks, the more she limps. She has nighttime pain. She would like to proceed with a left knee replacement. PAST MEDICAL HISTORY: 1. Hypertension. 2. Low back pain/sciatica. 3. Obesity with BMI of 41. PAST SURGICAL HISTORY: Include: 1. Right shoulder. 2. Right knee replacement on 07/22/2018. ALLERGIES: LAWRENCE INHIBITORS, ANTIBIOTICS, PREVNAR 13. CURRENT MEDICINES: Include: 1. Losartan 25 mg. 2. Nasal spray. 3. Melatonin. 4. Milk thistle. 5. Magnesium. 6. Aspirin. SOCIAL HISTORY: A 74-year-old female. She has two children. Does not smoke. No alcohol intake. FAMILY HISTORY: Noncontributory. REVIEW OF HISTORY: Negative for diabetes, neurologic problem, vascular problems or bleeding disorders. No chest pain or shortness of breath. No history of DVT or PE. PHYSICAL EXAMINATION: GENERAL: Shows a pleasant, middle-aged female who looks to be in good health. HEENT: Benign. NECK: Supple, no lymphadenopathy. LUNGS: Clear to auscultation. HEART: Has a regular rate and rhythm. ABDOMEN: Soft, nontender, nondistended. EXTREMITIES: Grossly neurovascularly intact except as follows. Examination of the left knee reveals the patient ambulates with little bit of a limp. She has got varus alignment to her knee. She is tender over the medial joint line. Small knee effusion. Range of motion 5-120. No instability. Examination of the right knee reveals well-healed incision. No significant swelling. Knee alignment is anatomic. Range of motion 0-120. X-RAYS: X-rays of left knee were reviewed. It shows advanced left knee medial compartment DJD. She has complete loss of medial joint space. She has got arthritic changes in all 3 compartments. Diffuse osteopenia. She has osteophytes in all 3 compartments. The right knee replacement looks to be in good position without signs of problems. ASSESSMENT: A 74-year-old female with a history of hypertension, significant obesity with advanced left knee degenerative joint disease now a year and half out from right knee replacement. She failed conservative treatment and would like to have her left knee replaced. PLAN: We are going to take her to the operating room and do a left total knee replacement. The risks and benefits of this procedure were explained to the patient including but not limited to DVT, PE, , infection, neurological injury, vascular injury, bleeding problem, pain, limited range of motion, stiffness, failure to relieve symptoms, incomplete relief of symptoms, need for further surgery in future, fracture, leg length inequality, nerve palsy, etc. The patient understands and desires to proceed. Informed consent was obtained. As far as discharge plans, she is planning to be discharged home using [facility] home health program.
[2020-02-29 01:35] LABS: SARS CoV2 RNA (COVID-19) NOT DETECTED (NOT DETECTED)
[~2020-03-01 08:23] MED LIST changes: +BUPIVACAINE 0.25% 30 ML VIAL ONE; -EPINEPHrine INJ 1 MG/ML AMP ONE; -FAMOTIDINE 20 MG TAB PO SCH; +GABAPENTIN 300 MG CAP PO SCH; -GABAPENTIN 300 MG PO SCH; +LR 500ML BOLUS, THEN 15ML/HR IV SCH; -ROPIVACAINE 0.5% 5 MG/ML 30 ML VIAL ONE
--- NOTE | 2020-03-01 08:51 | History & Physical Bridge Note ---
Date of Service March 01, 2020 History & Physical Bridge Note I have examined the patient, reviewed the History & Physical and in the interval since the performance of the History & Physical I have noted the following changes of clinical significance: no changes noted
[2020-03-01] MEDS ORDERED: FAMOTIDINE 20 MG TAB ONE (08:52)
[2020-03-01] MEDS ORDERED: MIDAZOLAM HCL 1 MG/ML 2ML VIAL ONE ×2 (09:21→11:47)
[2020-03-01] MEDS ORDERED: fentaNYL citrate 100 MCG/2 ML VIAL ONE (09:21)
[2020-03-01] MEDS ORDERED: fentaNYL citrate 100 MCG/2 ML VIAL IV PRN (10:34)
[2020-03-01] MEDS ORDERED: ePHEDrine sulfate 50 MG/ML AMP IV PRN (10:34)
[2020-03-01] MEDS ORDERED: ATROPINE SULFATE 0.1 MG/ML 10ML SYR IV PRN (10:34)
[2020-03-01] MEDS ORDERED: ONDANSETRON INJ 2 MG/ML 2 ML VIAL IV PRN ×2 (10:34→14:23)
[2020-03-01] MEDS ORDERED: BUPIVACAINE 0.25% 30 ML VIAL ONE (11:13)
[2020-03-01] MEDS ORDERED: BACITRACIN INJ 50,000 UNIT VIAL ONE (11:13)
[2020-03-01] MEDS ORDERED: BUPIVACAINE LIPOSOME 1.3% 266 MG/20 ML VIAL ONE (11:13)
[2020-03-01] MEDS ORDERED: SODIUM CHLORIDE 0.9% PF 50 ML VIAL ONE (11:13)
[2020-03-01] MEDS ORDERED: EPINEPHrine INJ 1 MG/ML AMP ONE (11:14)
[2020-03-01] MEDS ORDERED: PROPOFOL IV EMULSION 10 MG/ML 20 ML VIAL IV ONE ×2 (12:15→12:33)
[2020-03-01] MEDS ORDERED: LIDOCAINE HCL 2% 2 ML VIAL/AMP(20MG/ML) INFIL ONE (12:15)
[2020-03-01] MEDS ORDERED: ePHEDrine sulfate 50 MG/ML SYR ONE (12:15)
[2020-03-01] MEDS ORDERED: GLYCOPYRROLATE 0.2 MG/ML VIAL ONE (12:41)
--- NOTE | 2020-03-01 13:18 | Post Operative Brief Note ---
PG Immediate Post Op with CF Date of Surgery March 01, 2020 Pre & Post Diagnosis Operation Date: 03/01/20 10:40 Pre-Op Diagnosis: Left Knee Degenerative Joint Disease; Knee Pain Post-Op Diagnosis: Left Knee Degenerative Joint Disease; Knee Pain I identified the patient and participated in the time-out.: Yes Procedure Operation Date: 03/01/20 10:40 Actual Procedures p Left Total Knee Arthroplasty(Left) - Hernando Dejesus MD Surgeon Hernando Dejesus MD Ballroom Dancer [place], [facility] Estimated Blood Loss 50 Findings Consistent with Post-Op Diagnosis Fluids 800 cc Specimens Specimen Description: Permanent A. Left knee bone and tissue Drains Kirby Catheter Anesthesia Type Spinal MAC Complications none Disposition Accompanied Patient To Recovery: No Disposition: Recovery Room
--- NOTE | 2020-03-01 13:33 | Operative Report ---
Post Operative Report Pre & Post Diagnosis Operation Date: 03/01/20 10:40 Pre-Op Diagnosis: Left Knee Degenerative Joint Disease; Knee Pain Post-Op Diagnosis: Left Knee Degenerative Joint Disease; Knee Pain I identified the patient and participated in the time-out.: Yes Procedure Operation Date: 03/01/20 10:40 Actual Procedures p Left Total Knee Arthroplasty(Left) - Hernando Dejesus MD Surgeon Hrenando Dejesus MD Exhibit Preparator Bartolo, PAC Estimated Blood Loss 50 Findings Consistent with Post-Op Diagnosis and osteophytes.Operative findings revealed advanced left knee DJD with extensive grade 4 [id number] disease of the medial compartment as well as the patellofemoral compartment. She had eburnation of both areas. She had a moderate-sized joint effusion Fluids 800 cc. Specimens Left knee sent for pathology. Drains None. Anesthesia Type Spinal MAC Complications none Disposition Accompanied Patient To Recovery: No Disposition: Recovery Room Indications Patient is a 74-year-old female has a long history of bilateral knee pain discomfort. She is been through extensive conservative treatment the past. She underwent a right knee replacement about a year and a half ago is done well from this. She continued be limited by left knee pain and discomfort. She elected proceed with surgical treatment. Description of Procedure Operative implants consist of: 1. Biomet Vanguard size 62.5 left posterior stabilized femoral component. 2. Biomet size 71 tibial tray. 3. 10 mm posterior stabilized polyethylene insert. 4. 31 x 8 all poly-patella. The patient was taken to the operating room identified and placed on the ope rating table supine position protectors were properly padded. IV antibiotics were provided by anesthesia team. A spinal anesthetic and abductor canal block had been provided in the holding area. A Kirby catheter was placed in sterile fashion. A left thigh turn was then placed in the left lower extremities and prepped and draped in usual sterile fashion. The left leg was elevated and exsanguinated with use of an Esmarch and turns placed at 300 mmHg. An anterior approach to the left knee was then performed through a longitudinal incision centered over the patella. Sharp dissection was got through subcutaneous tissue down to the extensor mechanism. A medial parapatellar arthrotomy incision was made. Some subperiosteal dissection was carried out medially. The fat pad was resected from each patella tendon. Lateral patellofemoral ligament was released. Patella was subluxated laterally and the knee was flexed. The osteophytes were taken off the distal femur. The ACL and PCL were then released from distal femur and the tibia subluxated anteriorly. The external tibial alignment jig was then placed in the interface the tibia and adjusted 14 mm medially. Proximal tibial cut was made remove about 1 to 2 mm of bone from most efficient aspect of the tibial plateau. Some osteophytes were taken off medial and posterior medially. The tibia was sized to a size 71. Attention drawn to the femur. The distal femur was entered with a sharp drill. The intramedullary canal was suction. A left 5 degree valgus cutting guide was placed in the distal femoral cutting block was pinned in place. Distal femoral cut was made to take an additional 3 mm bone off distal femur. The femur was then sized to a size 62.5. The AP cutting block was pinned parallel to the epicondylar axis which was 5 degrees of external rotation. The anterior cut, anterior chamfer, posterior cut, posterior chamfer cuts were made. Box cutting guide was placed and just slightly lateral and the box cut was made. The knee was flexed. The remnants of the medial lateral menisci were excised. The osteophytes were taken off the posterior aspect the femur. A trial femoral component was placed. The tibial tray was pinned in maximum external rotation and the drill and stem punch were used to create defect in proximal tip for the tibial tray. Knee was then trialed and the 10 mm insert fit most appropriately. Attention drawn toward the patella. The patella was cleaned of all soft tissues. Patella thickness measured 18 mm in thickness was cut down 13. Was sized to a size 31 patella. Lug holes were drilled for 31 patella. The lateral osteophyte was removed. Patella button was placed. Knee was taken through range of motion patella tracked nicely with no thumbs test. Attention then drawn to place the permanent components. All trial components were removed. A bone plug was placed in the distal femur limit blood loss. A double batch Palacos G cement was mixed. Biomet Inspire Energyguard size 62.5 left posterior stabilized femoral component, size 71 tibial tray, 10 mm posterior box polyethylene insert, and a 31 x 8 all poly-patella were then cemented in place. The knee was brought out into full extension until cement hardened. Final cement check was then performed. Attention was then drawn toward closing. The wound was irrigated with copious pulsatile lavage solution. The knee and pericapsular tissues were injected with a total of 100 cc of combination of 20 cc of Exparel, 30 cc of normal saline, 50 cc of quarter percent Marcaine with epinephrine. The tourniquet was let down for a final turn time of 57 minutes. Hemostasis reduced electrocautery. The wounds once again irrigated. The extensor neck was then closed with combination 1 PDS suture #1 Vicryl suture in [id number] fashion. The extensor mechanism checked found to be intact the subcutaneous tissue then closed with 2- 0 Dexon suture in a buried interrupted fashion. The skin was closed skin domo. Leg was then cleaned dried a sterile dressing composed Xeroform, 4 x 4's, sterile ABD pad, sterile cast padding, Avelino bandage were applied. Patient then transferred to the recovery room in stable condition. Patient tolerated procedure well and there were no complications. Jessee Mcfarland, my physician drafter assistant, was present for the entire procedure. His assistance was essential and required for appropriate patient positioning, prepping and draping, surgical exposure, performing the technical details of the operation, placement the implants, closure of the wound, and placement of the sterile bandage. I attest to the content of the Intraoperative Record and any orders documented therein. Any exceptions are noted below.
--- NOTE | 2020-03-01 13:47 | XRay Report ---
XR knee LT 1 or 2V routine CLINICAL HISTORY: Postoperative evaluation. COMPARISON: Left knee radiographs January 28, 2020. FINDINGS: Alignment of the total left knee arthroplasty is anatomic. There is no periprosthetic frac ture or unexpected radiopaque foreign body. There are skin domo. IMPRESSION: Expected findings following total left knee arthroplasty. ACT 112: Negative or not required by law. Electronically signed by: Reji Werner M.D. 03/01/2020 1:46 PM
--- NOTE | 2020-03-01 14:09 | Anesthesiology Progress Note ---
Date of Service March 01, 2020 Anesthesia Post Procedure Vital Signs Vital Signs: Temp Pulse Pulse Resp BP BP Pulse Ox 03/01/20 14:00 67 16 141/67 H 99 03/01/20 13:50 36.4 C L 68 17 142/75 H 98 03/01/20 13:40 67 15 137/66 98 03/01/20 13:30 73 16 112/65 97 03/01/20 13:22 36.7 C 78 14 117/58 L 98 03/01/20 09:34 36.7 C 72 18 154/94 H 96 03/01/20 09:02 36.7 C 78 18 156/88 H 97 Pain Intensity Left Knee: Pain Intensity: 0 Transfer of Care Handoff Completed per policy Notes Mental Status: alert / awake / arousable and participated in evaluation Nausea / Vomiting: adequately controlled Pain: adequately controlled Airway Patency, RR, SpO2: stable & adequate BP & HR: stable & adequate Hydration State: stable & adequate Neuraxial Anesthesia: was administered and sensory block is resolving Anesthetic Complications: no major complications apparent and Pt Satisfied with anesthetic care
[2020-03-01] MEDS ORDERED: bisacodyL 10 MG SUPP PR PRN (14:23)
[2020-03-01] MEDS ORDERED: METOCLOPRAMIDE HCL INJ 5 MG/ML 2 ML VIAL IV PRN (14:23)
[2020-03-01] MEDS ORDERED: NALOXONE HCL 0.4 MG/1 ML VIAL/CARP IV PRN (14:23)
[2020-03-01] MEDS ORDERED: HYDROmorphone INJ 0.5 MG/0.5 ML SYR IV PRN (14:23)
[2020-03-01] MEDS ORDERED: MAGNESIUM HYDROXIDE SUSP 30 ML UDC PO PRN (14:23)
[2020-03-01] MEDS ORDERED: MELATONIN 3 MG TAB PO PRN (14:23)
[2020-03-01] MEDS ORDERED: ALUMINUM/MAGNESIUM SUSP 30 ML UDC PO PRN (14:23)
[2020-03-01] MEDS: SODIUM CHLORIDE 0.9% 1000ML 1,000 ML IV SCH (14:48)
[2020-03-01] MEDS: ACETAMINOPHEN 500 MG TAB PO SCH ×2 (14:49→21:42)
--- NOTE | 2020-03-01 16:04 | Progress Notes ---
DATE: 03/01/2020 SUBJECTIVE: 74-year-old female postop from a left knee replacement. She is doing well. Not having any pain yet. No chest pain or shortness of breath. Not feeling dizzy or lightheaded. OBJECTIVE: VITAL SIGNS: Temperature 36.5. Vital signs stable. GENERAL: Shows a pleasant elderly female. She is lying in bed, looks pretty comfortable. She is currently doing a heel prop. LUNGS: Clear to auscultation. HEART: Regular rate and rhythm. ABDOMEN: Soft, nontender, nondistended. EXTREMITIES: Grossly neurovascularly intact except as follows: Examination of the left leg reveals the leg to be well aligned. She is currently doing a heel prop. Leg looks straight. She can dorsiflex and plantarflex her foot appropriately. She is neurologically intact. X-RAYS: X-rays of the left knee from recovery room were reviewed. It shows a left cemented posterior stabilized total knee arthroplasty. Components look to be in good position. No signs of problems. ASSESSMENT: 74-year-old female postop from a left knee replacement, doing well. Pain is controlled. She is neurologically intact. PLAN: 1. DVT prophylaxis including thigh-high TEDS, SCDs, and aspirin twice a day. 2. PT/OT. Weight bear as tolerated. Left total knee protocol. 3. Pain control, doing well with current pain regimen. 4. IV antibiotics x24 hours. 5. Disposition: She is planning to be discharged to home with some home health once adequately recovered and medically stable.
[2020-03-01] MEDS: FERROUS GLUCONATE 324 MG TAB PO SCH (16:39)
[2020-03-01] MEDS: ASCORBIC ACID 500 MG TAB PO SCH (16:40)
[2020-03-01] MEDS: KETOROLAC TROMETHAMINE 15 MG/ML VIAL IV SCH ×2 (16:40→21:43)
[2020-03-01] MEDS: CEFAZOLIN 2000MG 2,000 MG/15 ML SYR IV SCH (18:55)
[2020-03-01] MEDS: TRAMADOL HCL 50 MG TABLET PO PRN (19:24)
[2020-03-01] MEDS ORDERED: TRANEXAMIC ACID / 0.7% NACL 1,000 MG/100 ML BAG IV SCH (19:30)
[2020-03-01] MEDS ORDERED: SENNA 8.6 MG TAB PO SCH (21:00)
[2020-03-01] MEDS ORDERED: LOSARTAN POTASSIUM 25 MG TAB PO SCH (21:00)
[2020-03-01] MEDS ORDERED: NON-FORMULARY MEDICATION (Milk Thistle 175 MG) PO SCH (21:00)
[2020-03-01] MEDS ORDERED: NON-FORMULARY MEDICATION (Magnesium Citrate 100 MG) PO SCH (21:00)
[2020-03-01] MEDS: ASPIRIN 81 MG ECTAB PO SCH (21:42)
[2020-03-01] MEDS: DOCUSATE SODIUM 100 MG CAP PO SCH (21:42)
[2020-03-02] MEDS: SODIUM CHLORIDE 0.9% 1000ML 1,000 ML IV SCH (00:34)
[2020-03-02] MEDS: CEFAZOLIN 2000MG 2,000 MG/15 ML SYR IV SCH (00:44)
[2020-03-02] MEDS: ACETAMINOPHEN 500 MG TAB PO SCH ×2 (04:48→14:33)
[2020-03-02] MEDS: KETOROLAC TROMETHAMINE 15 MG/ML VIAL IV SCH ×2 (04:48→09:26)
[2020-03-02 06:23] LABS: Hematocrit (blood only) 39.6 % (37-47); Mean Corpuscular Hemoglobin 29.2 pg (25-34); Mean Corpuscular Hgb Conc 32.8 g/dL (32-36); Mean Platelet Volume 9.5 fL (7.4-10.4); Platelet Count 214 K/uL (130-400); RDW Coefficient of Variation 13.4 % (11.5-14.5); RDW Standard Deviation 44.1 fL (36.4-46.3); Red Blood Count 4.45 M/uL (4.2-5.4); White Blood Count 10.01 K/uL (4.8-10.8)
[2020-03-02 06:59] LABS: BUN Creatinine Ratio 12.7 (10-20); Calcium 8.3 mg/dl (8.5-10.1); Creatinine Clr Calc Pharmacy 52.1 ml/min; Est GFR (African American) 59.6; Est GFR (Non-African American) 51.5
[2020-03-02] MEDS: TRAMADOL HCL 50 MG TABLET PO PRN ×2 (08:34→14:32)
[2020-03-02] MEDS: FERROUS GLUCONATE 324 MG TAB PO SCH (08:35)
[2020-03-02] MEDS: ASPIRIN 81 MG ECTAB PO SCH (08:35)
[2020-03-02] MEDS: DOCUSATE SODIUM 100 MG CAP PO SCH (08:35)
[2020-03-02] MEDS: ASCORBIC ACID 500 MG TAB PO SCH (08:35)
[2020-03-02] MEDS ORDERED: MULTIVITAMIN TAB PO SCH (09:00)
--- NOTE | 2020-03-02 13:17 | Progress Notes ---
DATE: 03/02/2020 SUBJECTIVE: A 74-year-old white female postop day 1 from left knee replacement. She is doing well. Therapy went well. Pain is controlled. No chest pain or shortness of breath. Not feeling dizzy or lightheaded. OBJECTIVE: VITAL SIGNS: Temperature 36.8. Vital signs stable. Little bit hypertensive. GENERAL: Shows a pleasant, middle-aged female. She is sitting up at her bedside chair, looks comfortable. EXTREMITIES: Examination of the left leg reveals the dressing to be clean, dry and intact. She can dorsiflex and plantarflex her foot appropriately. She is neurologically intact. LABORATORY DATA: Hemoglobin 13.0. Hematocrit 39.6. Electrolytes are stable. ASSESSMENT: A 74-year-old female postoperative day 1 from a left knee replacement, doing quite well. Pain is controlled. She is neurologically intact. PLAN: 1. DVT prophylaxis including thigh-high TEDs, SCDs, and aspirin twice a day. 2. PT/OT. Weight bear as tolerated. Left total knee protocol. 3. Pain control, doing well with current pain regimen. 4. Disposition: Plan to discharge to home with some home health later today.
--- NOTE | 2020-03-04 16:20 | Discharge Summary ---
Date of Service March 04, 2020 Admission HPI Per Admitting Provider Documented in the H & P Admission Exam (Per Admitting) Constitutional Documented in the H & P Discharge Data Consultations 03/01/20 14:23 Consult Case Management - Discharge Planning Routine Procedures Performed Operation Date: 03/01/20 10:40 Actual Procedures p Left Total Knee Arthroplasty(Left) - Hernando Dejesus MD Hospital Course (1) Status post total left knee replacement: This patient is a 74 year old female admitted on 03/01/20 and underwent total knee arthroplasty. She tolerated the procedure well and there were no complications. Transferred to the PACU post op and later to the orthopedic floor for further care. She was given ancef for antibiotic prophylaxis. She was also given CHUCKIE stockings, SCDs, and aspirin for DVT prophylaxis. Hemoglobin, hematocrit, and vital signs were monitored during her hospital stay and remained stable. Did not require any blood transfusions. There were no complications during her hospital stay. By post op day #1 the patient was tolerating a regular diet, pain was reasonably controlled with oral pain medicine, and she was participating in physical therapy. On post op day #2 the patient was discharged home and set up with home health care. She was given printed discharge instructions including prescriptions for extra strength tylenol, aspirin, and tramadol. Continue physical therapy, weight bearing as tolerated. Continue CHUCKIE stockings. Follow up approximately 2 weeks post op or sooner if there are problems or concerns. Coding Level of Care Code None Diagnoses Status post total left knee replacement Z96.652
== END 2020-03-02 15:04 | disposition home health service (06) ==
LOC: ASU 08:23 → 3E 08:23